=== PATIENT | female | born 1960 | race Caucasian/White ===

== ENCOUNTER 2017-01-30 08:42 | Outpatient (CLI) | payer BC ==
[~2017-01-30 08:42] MED LIST: ALEVE220 MG PO; ASPIRIN ADULT L81 M1 PO; ASPIRIN325 MG PO; ATENOLOL50 MG PO; GLUCOSAMINE CHONDROI PO; HYDROCHLOROTHIA25 MG PO; NAPROXEN250 MG PO; POTASSIUM CHLO10 ME2 PO; VITAMIN B COMPLE1; VITAMIN D-31000 UNIT PO
--- NOTE | 2017-01-30 13:32 | DIAGNOSTIC IMAGING REPORT ---
PROCEDURE: US RENAL VASCULAR - BILATERAL INDICATION: HYPERTENSION TECHNIQUE: Garvin scale and color Doppler sonographic images of the kidneys were performed. Spectral waveform analysis was obtained of the renal arteries, intrarenal vessels, and aorta, including renal resistive indices and calculation of renal to aortic ratios. COMPARISON: None. FINDINGS: AORTIC VELOCITY: 107 cm/sec. RIGHT KIDNEY: Right kidney is of normal size 12.3 x 5.5 x 5.8 cm) with normal morphology. There is a 1.4 cm mid lateral cortical cyst. RIGHT RENAL ARTERY VELOCITIES: Right renal artery velocities are normal (proximal 49 cm/s; mid 51 cm/s; distal 103 cm/s). RIGHT RENAL AORTIC RATIO: Right renal to aortic ratios are normal (proximal 0.46 mid 0.47 distal 0.96 RIGHT RENAL RESISTIVE INDICES: Right renal resistive indices are normal (upper pole 0.72 midpole 0.7 inferior pole 0.69 LEFT KIDNEY: Left kidney is of normal size 12.3 x 5.6 x 5.9 cm) with normal morphology. LEFT RENAL ARTERY VELOCITIES: Left renal artery velocities are normal (proximal not well visualized ; mid 186 cm/s; distal 150 cm/s). LEFT RENAL AORTIC RATIO: Left renal to aortic ratios are normal (proximal not applicable mid 1.7 distal 1.4 LEFT RENAL RESISTIVE INDICES: Left renal resistive indices are normal (upper pole 0.79 midpole 0.67 inferior pole 0.64 IMPRESSION: 1. Mildly increased peak systolic velocity of the mid left renal artery but a normal renal artery/aortic ratio. MRA or CTA of the renal arteries may be useful for further evaluation 2. Mildly increased left resistive index, possible intrinsic renal disease 3. 1.4 cm simple right renal cyst
== END 2017-01-30 23:00 ==
LOC: US SRH 08:42
DX: I10 Essential (primary) hypertension (principal); N28.1 Cyst of kidney, acquired